=== PATIENT | female | born 1935 | race Asian ===

== ENCOUNTER 2020-05-04 09:41 | Inpatient (IN) | payer MEDICARE ==
[2020-05-04] VITALS (554 sets, daily range): BP systolic 71–134; BP diastolic 53–82; PULSE 55–81; TEMP 93–99.1; O2SAT 81–100
[~2020-05-04] VITALS: Ht 157.5 cm; Wt 44.4 kg
--- NOTE | 2020-05-04 10:15 | NUR ---
Patient arrives from [facility]. She is covid suspect, all PPE worn. She is intubated. Nathalie, PRESTON in room with me and sets patient up on the vent. Dr. Roth aware of arrival.
[2020-05-04 11:14] LABS: ARTERIAL BLD GAS O2 SATURATION 98.4 % (92-100); ARTERIAL BLD GAS TCO2 CT 12.9; ARTERIAL BLOOD GAS BASE EXCESS -10.4 (-2-2); ARTERIAL BLOOD GAS HCO3 12.3 meq/L (22-26); ARTERIAL BLOOD GAS pH 7.42 (7.35-7.45)
[2020-05-04 11:15] LABS: ARTERIAL BLOOD GAS PCO2 19.5 mmHg (35-45); ARTERIAL BLOOD GAS PO2 143.8 mmHg (80-100)
[2020-05-04 12:30] LABS: HEMOGLOBIN 10.1 g/dl (12.5-16.0); MEAN CELL VOLUME 95 fl (80.0-100.0); MEAN CORPUSCULAR HEMOGLOBIN 31 pg (27.0-31.0); MEAN CORPUSCULAR HGB CONC 33 g/dl (33.0-37.0); MEAN PLATELET VOLUME 11.4 fl (7.4-10.4); PLATELET COUNT 141 K/mm3 (130-400); RED BLOOD COUNT 3.23 M/mm3 (4.10-5.30); REDCELL DISTRIBUTION WIDTH-CV 17.4 % (11.5-14.5)
[2020-05-04 12:32] LABS: INR 1.3 (0.8-3.0); PROTHROMBIN TIME 14.1 SECONDS (9.7-12.8)
[2020-05-04 12:34] LABS: HEMATOCRIT 30.7 % (37.0-47.0)
[2020-05-04 12:44] LABS: BAND 20 % (0-10); LYMPHOCYTE 1 % (20.0-51.0); METAMYELOCYTE 1 % (0-0); OVALOCYTES 1+; PLATELET ESTIMATE NORMAL (NORMAL)
[2020-05-04 12:46] LABS: ALBUMIN 2.7 gm/dL (3.5-5.0); BILIRUBIN,TOTAL 1.2 mg/dL (0.0-1.0); CALCIUM 7.4 mg/dL (8.4-10.2); CREATININE, serum 0.83 (0.52-1.25); MAGNESIUM 1.3 mg/dL (1.6-2.3); PHOSPHOROUS 2.4 mg/dL (2.5-4.5); POTASSIUM 5.4 mmol/L (3.4-5.0); TOTAL PROTEIN 5.2 gm/dL (6.4-8.2)
[2020-05-04 12:47] LABS: NEUTROPHILS 76 % (42.0-75.2)
[2020-05-04 12:59] LABS: TROPONIN-I 0.107 ng/mL (0.000-0.035)
[2020-05-04 13:16] LABS: TSH w REFLEX 2.37 uIU/mL (0.465-4.680)
[2020-05-04] MEDS ORDERED: REMERON 15M15 MG/TA1 PO (13:52)
[2020-05-04] MEDS ORDERED: PROTONIX 40MG T40 MG PO (13:53)
[2020-05-04] MEDS ORDERED: NORCO 325 MG-101 TAB PO (13:53)
[2020-05-04] MEDS ORDERED: CARAFATE 1GM1 G PO (13:53)
[2020-05-04] MEDS ORDERED: TEMOVATE0.051 TOP (13:54)
[2020-05-04] MEDS ORDERED: COREG 6.256.25 MG/TA PO (13:54)
[2020-05-04] MEDS ORDERED: AMBIEN 5MG TABLE5 MG PO (13:55)
[2020-05-04] MEDS ORDERED: FOSAMAX 70MG TA70 MG PO (13:56)
[2020-05-04] MEDS ORDERED: LIPITOR 10MG10 MG PO (13:56)
[2020-05-04 16:22] LABS: ARTERIAL BLD GAS O2 SATURATION 97.8 % (92-100); ARTERIAL BLD GAS TCO2 CT 12.4; ARTERIAL BLOOD GAS HCO3 11.7 meq/L (22-26); ARTERIAL BLOOD GAS PCO2 21.4 mmHg (35-45); ARTERIAL BLOOD GAS PO2 109.6 mmHg (80-100); ARTERIAL BLOOD GAS pH 7.36 (7.35-7.45)
--- NOTE | 2020-05-04 18:20 | NUR ---
UPDATE GIVEN TO ARASH, DAUGHTER, OVER THE PHONE. QUESTIONS ANSWERED AND PLAN OF CARE DISCUSSED.
--- NOTE | 2020-05-04 19:00 | NUR ---
BEDSIDE REPORT GIVEN TO ESTEVAN YU
--- NOTE | 2020-05-04 20:00 | NUR ---
Patient resting on the vent at this time. She appears comfortable and no signs of pain. Patient opens eyes to name and noise in the room. Patient signifies that she would like to write. Paper and pen given, but patient begins writing in kinyarwanda, unable to determine what it is she needs. Repositioned for comfort. Assessment complete, see shift assessment for details. Vitals remain stable. Will continue to monitor. Call light within reach.
[2020-05-04 20:01] LABS: MUCOUS Present /lpf; PH 5 (5-8); SQUAMOUS EPITHELIAL None Seen /hpf; URINE APPEARANCE Hazy; URINE BACTERIA None Seen /hpf; URINE BILIRUBIN Negative (NEGATIVE); URINE BLOOD Negative (NEGATIVE); URINE COLOR Yellow; URINE GLUCOSE Negative (NEGATIVE); URINE KETONE Negative (NEGATIVE); URINE LEUKOCYTE ESTERASE Negative (NEGATIVE); URINE NITRATE Negative (NEGATIVE); URINE PROTEIN(semi-quant) 1+ (NEGATIVE); URINE UROBILINOGEN Negative (NEGATIVE)
[2020-05-05] VITALS (956 sets, daily range): BP systolic 83–130; BP diastolic 54–78; PULSE 63–94; TEMP 97–98.4; O2SAT 90–100
[2020-05-05 01:16] LABS: COLLECTION METHOD CATHETER
[2020-05-05 05:47] LABS: ARTERIAL BLD GAS O2 SATURATION 97.3 % (92-100); ARTERIAL BLD GAS TCO2 CT 14.5; ARTERIAL BLOOD GAS BASE EXCESS -10.2 (-2-2); ARTERIAL BLOOD GAS HCO3 13.8 meq/L (22-26); ARTERIAL BLOOD GAS PCO2 24.9 mmHg (35-45); ARTERIAL BLOOD GAS PO2 101.3 mmHg (80-100); ARTERIAL BLOOD GAS pH 7.36 (7.35-7.45)
--- NOTE | 2020-05-05 06:00 | NUR ---
Patient repositioned for comfort. Patient awakens very easily with any noise or tactile stimulation. Patient has been difficult to sedate has her pressures drop significantly with any increase in sedation. Patient has had no acute events throughout the night. No current needs at this time. Will continue to monitor. Call light within reach.
[2020-05-05 06:09] LABS: MEAN CELL VOLUME 97 fl (80.0-100.0); MEAN CORPUSCULAR HGB CONC 32 g/dl (33.0-37.0); MEAN PLATELET VOLUME 11.5 fl (7.4-10.4); PLATELET COUNT 142 K/mm3 (130-400); RED BLOOD COUNT 2.89 M/mm3 (4.10-5.30); REDCELL DISTRIBUTION WIDTH-CV 18.1 % (11.5-14.5)
--- NOTE | 2020-05-05 06:20 | NUR ---
PT NOT INTUBATED FOR OVER 24 HOURS THEREFORE NO WEAN TRIAL STARTED. PT ON DOCUMENTED SETTINGS RACHELL WELL WITH NO DISTRESS NOTED AT THIS TIME.
[2020-05-05 06:22] LABS: ALBUMIN 2.3 gm/dL (3.5-5.0); BILIRUBIN,TOTAL 0.9 mg/dL (0.0-1.0); CALCIUM 6.9 mg/dL (8.4-10.2); CREATININE, serum 0.82 (0.52-1.25); MAGNESIUM 1.9 mg/dL (1.6-2.3); POTASSIUM 4.7 mmol/L (3.4-5.0); TOTAL PROTEIN 4.6 gm/dL (6.4-8.2)
[2020-05-05 06:24] LABS: HEMATOCRIT 28.1 % (37.0-47.0); HEMOGLOBIN 9.1 g/dl (12.5-16.0); MEAN CORPUSCULAR HEMOGLOBIN 31 pg (27.0-31.0)
[2020-05-05 06:33] LABS: TROPONIN-I 0.118 ng/mL (0.000-0.035)
--- NOTE | 2020-05-05 07:00 | NUR ---
BEDSIDE REPORT RECEIVED FROM ESTEVAN YU. CARE ASSUMED.
--- NOTE | 2020-05-05 07:10 | NUR ---
Bedside report given to ESTEVAN Simmons
[2020-05-05 07:55] LABS: ANISOCYTOSIS 1+; BAND 20 % (0-10); BURR CELLS 1+; LYMPHOCYTE 7 % (20.0-51.0); NEUTROPHILS 70 % (42.0-75.2); PLATELET ESTIMATE NORMAL (NORMAL)
--- NOTE | 2020-05-05 08:00 | NUR ---
UPDATE GIVEN TO DAUGHTER, ARASH, VIA PHONE. ALL QUESTIONS ANSWERED.
--- NOTE | 2020-05-05 10:03 | NUR ---
hop worker contacted patient's daughter, Simón Goodson #[phone] as patient is currently on a ventilator. Simón stated that patient lives alone and has been independent with her activties of daily living. Simón states that she has been providing transportation. Patient's primary care provider is Dr Cooper from [facility] and that he has an office in [place], [place]. Patient has a Medicare advantage plan and has prescription coverage. Worker confirmed with Dr Cooper that there are no advance directives on file in his office. Dr Cooper advised that daughter told him patient would not want to be resuscitated. Simón stated that patient does have a Living Will and will try to locate it at patient's home today and scallop cutter. Simón stated that she is the only child. Case Management will continue to follow.
--- NOTE | 2020-05-05 12:20 | NUR ---
beadworker contacted patient's absorption plant operator helper's office at [phone] and requested copies of advance directives to be faxed to the hospital. Daughter, Simón states she also has a copy of patient's Will.
--- NOTE | 2020-05-05 19:00 | NUR ---
BEDSIDE REPORT GIVEN TO ESTEVAN OLSON
[2020-05-06] VITALS (786 sets, daily range): BP systolic 65–144; BP diastolic 40–85; PULSE 41–138; TEMP 97–101.8; O2SAT 80–100
--- NOTE | 2020-05-06 04:21 | NUR ---
TF INCREASED TO 20 ML/HR. PT TOERATING IT WELL. RESIDUAL AT 100 CC. AUDIBLE BOWEL TONES.
[2020-05-06 05:03] LABS: MEAN CELL VOLUME 98 fl (80.0-100.0); MEAN CORPUSCULAR HGB CONC 32 g/dl (33.0-37.0); MEAN PLATELET VOLUME 11.5 fl (7.4-10.4); PLATELET COUNT 109 K/mm3 (130-400); RED BLOOD COUNT 2.82 M/mm3 (4.10-5.30); REDCELL DISTRIBUTION WIDTH-CV 18.7 % (11.5-14.5)
[2020-05-06 05:16] LABS: HEMATOCRIT 27.5 % (37.0-47.0); HEMOGLOBIN 8.8 g/dl (12.5-16.0); MEAN CORPUSCULAR HEMOGLOBIN 31 pg (27.0-31.0)
[2020-05-06 05:22] LABS: ALBUMIN 2.1 gm/dL (3.5-5.0); BILIRUBIN,TOTAL 0.8 mg/dL (0.0-1.0); CALCIUM 6.7 mg/dL (8.4-10.2); CREATININE, serum 0.8 (0.52-1.25); POTASSIUM 4.2 mmol/L (3.4-5.0); TOTAL PROTEIN 4.3 gm/dL (6.4-8.2)
[2020-05-06 05:23] LABS: ARTERIAL BLD GAS O2 SATURATION 96.5 % (92-100); ARTERIAL BLD GAS TCO2 CT 12.6; ARTERIAL BLOOD GAS BASE EXCESS -11.6 (-2-2); ARTERIAL BLOOD GAS HCO3 11.9 meq/L (22-26); ARTERIAL BLOOD GAS PO2 96.4 mmHg (80-100); ARTERIAL BLOOD GAS pH 7.37 (7.35-7.45)
[2020-05-06 05:35] LABS: NEUTROPHILS 57 % (42.0-75.2)
[2020-05-06 05:36] LABS: BAND 7 % (0-10); LYMPHOCYTE 34 % (20.0-51.0)
[2020-05-06 05:37] LABS: ANISOCYTOSIS 1+; BURR CELLS 1+; PLATELET ESTIMATE DECREASED (NORMAL)
[2020-05-06 05:38] LABS: OVALOCYTES 1+
--- NOTE | 2020-05-06 07:20 | NUR ---
REPORT GIVEN TO ESTEVAN VALDEZ.
--- NOTE | 2020-05-06 08:35 | NUR ---
[facility] CALLED AND REQUESTED RECORDS OF PTS EGD/COLONOSCOPY. STATED IF THEY CAN FIND THEY WILL FAX OVER.
--- NOTE | 2020-05-06 08:37 | NUR ---
PT APPEARS TO HAVE GONE IN TO AFIB. BP STABLE. EKG ORDERED AND RT NOTIFIED.
--- NOTE | 2020-05-06 08:52 | NUR ---
EKG SHOWS AFIB. NOTIFIED.
--- NOTE | 2020-05-06 10:00 | NUR ---
CALLED AND NOTIFIED THAT PT IS NOW IN AFIB WITH [id number]. ORDER RECEIVED TO GIVE AMIO BOLUS PLUS START DRIP AT 1MG/MIN FOR [address] BULL NOTIFIED.
--- NOTE | 2020-05-06 10:35 | NUR ---
FENT AND PROPOFOL STOPPED. PT EXTUBATED BY RT PER 'S ORDER. WILL DO ABG AT 1300. PT AND DAUGHTER UPDATED ON PLAN.
--- NOTE | 2020-05-06 11:00 | NUR ---
PT HAS A FEVER OF 101.3 RECTALLY. AND NOTIFIED. ORDER RECEIVED FOR BC, URINE CULTURE, AND TYLENOL.
--- NOTE | 2020-05-06 12:30 | NUR ---
PT STILL HAS A FEVER OF 101.8. ICE PACKS APPLIED AND NOTIFIED. ORDER FOR ASPRIN RECEIVED. PT BECOMING INCREASINGLY LETHARGIC. NOTFIED AND EVALUATED PT. DECIDED TO REINTUBATE. PT INTUBATED AT 1250. SEE RSI SHEET. PT BECAME BRADYCARDIC AMIO STOPPED PER . SEE DRIP TITRATION FLOW SHEET. WILL CONTINUE TO MONITOR.
--- NOTE | 2020-05-06 12:50 | NUR ---
PT REINTUBATED DUE TO DISTRESS/ AT BEDSIDE. PT INTUBATED BY DR BULL WITHOUT COMPLICATIONS. GOOD CONSISTANT COLOR CHANGE, OETT SEEN PASSING CORDS ON GLIDASCOPE AND BBSH. CXR AND ABG PENDING. ALARMS SET AND FUNCTIONING. SETTING PER DR. BULL. PLEASE SEE ADDITIONAL CHARTING.
--- NOTE | 2020-05-06 12:50 | NUR ---
PT REINTUBATED. PROPOFOL RESTARTED PER
--- NOTE | 2020-05-06 13:00 | NUR ---
LEVO INCREASED TO 0.25 PER AT BEDSIDE
--- NOTE | 2020-05-06 13:29 | NUR ---
LEVO INCREASED TO 0.4 PER
--- NOTE | 2020-05-06 15:02 | NUR ---
PT APPEARED TO BE BACK IN A REGULAR RYTHYM. EKG DONE AND SHOWING SUPRAVENTRICULAR CHASTITY WITH ACUTE VT. CALLED AT 1446 STATED HE WOULD CALL BACK. CALLED AND NOTIFIED AND ORDERED A TROP AND TO RECALL TO NOTIFY. TROPONIN DRAWN. CALLED AGAIN AT 1500 AND NOTIFIED OF EKG, BP, AND HEART RATE. NO NEW ORDERS RECEIVED.
--- NOTE | 2020-05-06 15:24 | NUR ---
LEVOPHED RESTARTED AT 0.2 PER
[2020-05-06 16:02] LABS: ARTERIAL BLD GAS O2 SATURATION 98.4 % (92-100); ARTERIAL BLD GAS TCO2 CT 13.3; ARTERIAL BLOOD GAS BASE EXCESS -11.4 (-2-2); ARTERIAL BLOOD GAS HCO3 12.6 meq/L (22-26); ARTERIAL BLOOD GAS PCO2 23.1 mmHg (35-45); ARTERIAL BLOOD GAS pH 7.36 (7.35-7.45)
--- NOTE | 2020-05-06 16:26 | NUR ---
PT AROUSES TO VOICE. PT CONFUSED BUT ABLE TO FOLLOW SOME COMMANDS. PT MOVING ALL EXTREMETIES.
--- NOTE | 2020-05-06 17:29 | NUR ---
[facility] CALLED AT 1555 REGARDING BRINGING UP TUBE FEEDING. INSTRUCTED TO RESTART TUBE FEEDING THIS EVENING. CURRENTLY AWAITING DELIVERY.
--- NOTE | 2020-05-06 17:51 | NUR ---
TUBE FEED STARTED AT 10ML/HR. WILL RUN FOR 12HRS THEN INCREASE BY 10ML/HR. WILL ENDORSE TO FOLLOWING RN.
--- NOTE | 2020-05-06 18:19 | NUR ---
CALLED THIS RN TO GET UPDATE ON PT. INFORMED HIM THAT PT IS STILL IN A JUNCTIONAL RYTHYM WITH HR 46-53. ALSO DISCUSSED BP, TEMP, PRESSERS, FLUIDS, AND REINTUBATION. STATES NO NEW ORDERS AT THIS TIME. IF HR HITS THE 30'S TO CALL BACK AND MAY NEED TO START DOPAMINE. WILL PLACED ORDER AND ENDORSE TO FOLLOWING RN.
--- NOTE | 2020-05-06 19:08 | NUR ---
received report from ESTEVAN Smith.
[2020-05-07] VITALS (846 sets, daily range): BP systolic 83–134; BP diastolic 48–77; PULSE 44–66; TEMP 97.2–98.5; O2SAT 77–100
[2020-05-07 04:01] LABS: ARTERIAL BLD GAS O2 SATURATION 98.2 % (92-100); ARTERIAL BLD GAS TCO2 CT 13.8; ARTERIAL BLOOD GAS HCO3 13.1 meq/L (22-26); ARTERIAL BLOOD GAS pH 7.41 (7.35-7.45)
--- NOTE | 2020-05-07 04:24 | NUR ---
TF INCREASED TO 20 ML/HR ORDERED. PT TOLERATING IT WELL. RESIDUAL AT 75 CC.
[2020-05-07 04:48] LABS: BASO % 0.1 % (0.0-2.0); GRAN # 18.1 (1.4-6.5); GRAN % 82.7 % (42.2-75.2); LYMPH # 2.7 (1.2-3.4); LYMPH % 12.3 % (20.0-51.0); MEAN CELL VOLUME 97 fl (80.0-100.0); MEAN CORPUSCULAR HGB CONC 33 g/dl (33.0-37.0); MEAN PLATELET VOLUME 12.1 fl (7.4-10.4); MONO # 0.9 (0.1-0.6); MONO % 3.9 % (1.7-9.3); PLATELET COUNT 77 K/mm3 (130-400); RED BLOOD COUNT 2.64 M/mm3 (4.10-5.30); REDCELL DISTRIBUTION WIDTH-CV 18.6 % (11.5-14.5)
[2020-05-07 04:52] LABS: HEMATOCRIT 25.5 % (37.0-47.0); HEMOGLOBIN 8.3 g/dl (12.5-16.0); MEAN CORPUSCULAR HEMOGLOBIN 31 pg (27.0-31.0)
[2020-05-07 04:58] LABS: CALCIUM 6.7 mg/dL (8.4-10.2); CREATININE, serum 0.82 (0.52-1.25); MAGNESIUM 1.8 mg/dL (1.6-2.3); POTASSIUM 4.5 mmol/L (3.4-5.0); TOTAL PROTEIN 4.2 gm/dL (6.4-8.2)
--- NOTE | 2020-05-07 05:00 | NUR ---
NO SEDATION VACATION PERFORMED PT AWAKENS TO VOICE AND FOLLOWS COMMANDS. PT ON VERY MINIMAL SEDATION - PROPOFOL AT 10 MCG/KG/MIN.
--- NOTE | 2020-05-07 05:11 | NUR ---
[place] [id number] AND WBC AT 21.9. PT ALREADY ON ANTIBIOTICS AND PT DOES HAVE GENERALIZED 2+ EDEMA, LEFT ARM WEEPING. PT HAS LR GOING AT 75 ML/HR. JOAN BANDA CALLED AND UPDATED, WILL REVIEW PT'S LABS AND WILL ORDER STUFF IF NEEDED.
--- NOTE | 2020-05-07 07:03 | NUR ---
REPORT GIVEN TO ESTEVAN ARIAS.
--- NOTE | 2020-05-07 08:30 | NUR ---
PT IS WORKING WITH PT AT THIS TIME. NO DISTRESS NOTED.
--- NOTE | 2020-05-07 17:00 | NUR ---
At current sedation pt able to open eyes to voice and follow all commands
--- NOTE | 2020-05-07 20:00 | NUR ---
PATIENT IS AWAKENED TO VOICE, WANTS TO WRITE MESSAGE, STAFF UNABLE TO READ WHAT IS WRITTEN. PATIENT GESTURES OF WANTING TO GET ET TUBE OUT.. WHEN EXPLAINED ET TUBE HAS TO STAY IN PATIENT LOOKS AWAY, PATIENT IS DROWSY WILL FALL ASLEEP DURING CONVERSATION.
[2020-05-07 21:56] LABS: ARTERIAL BLOOD GAS PCO2 21.4 mmHg (35-45); ARTERIAL BLOOD GAS PO2 125.7 mmHg (80-100)
[2020-05-08] VITALS (664 sets, daily range): BP systolic 92–116; BP diastolic 45–68; PULSE 58–77; TEMP 97.6–98.7; O2SAT 83–100
[2020-05-08 05:27] LABS: ALBUMIN 2.1 gm/dL (3.5-5.0); BILIRUBIN,TOTAL 0.5 mg/dL (0.0-1.0); CALCIUM 7.1 mg/dL (8.4-10.2); CREATININE, serum 0.79 (0.52-1.25); PHOSPHOROUS 2.4 mg/dL (2.5-4.5); POTASSIUM 4.1 mmol/L (3.4-5.0); TOTAL PROTEIN 4.3 gm/dL (6.4-8.2)
[2020-05-08 05:34] LABS: PRE ALBUMIN 10.5 mg/dL (17.6-36.0)
[2020-05-08 05:45] LABS: ARTERIAL BLD GAS O2 SATURATION 96.7 % (92-100); ARTERIAL BLD GAS TCO2 CT 17.2; ARTERIAL BLOOD GAS BASE EXCESS -6.2 (-2-2); ARTERIAL BLOOD GAS HCO3 16.5 meq/L (22-26); ARTERIAL BLOOD GAS PCO2 23.3 mmHg (35-45); ARTERIAL BLOOD GAS PO2 90.5 mmHg (80-100); ARTERIAL BLOOD GAS pH 7.47 (7.35-7.45)
--- NOTE | 2020-05-08 07:50 | NUR ---
Shift assessment complete at this time. Plan of care reviewed at bedside with patient. Additional time taken to address any other needs or concerns. Vitals stable at this time. CPOT score 0 at this time while intubated. Sedation stopped at 0730 for weaning trial. Bed in low position, call light within reach, will continue to monitor.
--- NOTE | 2020-05-08 08:45 | NUR ---
PICC intact right upper arm with sterile dressing change done with insertion site cleansed with chloraprep x 1, chlorhexidine impregnated disk applied, skin prep, stat lock, and tegaderm applied. no signs or symptoms of IV complications noted. no concerns voiced. slight hand swelling. restraints present. emanuel not re-applied.
[2020-05-08 09:48] LABS: ARTERIAL BLD GAS O2 SATURATION 94.6 % (92-100); ARTERIAL BLD GAS TCO2 CT 17.8; ARTERIAL BLOOD GAS BASE EXCESS -5.8 (-2-2); ARTERIAL BLOOD GAS PCO2 25.5 mmHg (35-45); ARTERIAL BLOOD GAS pH 7.44 (7.35-7.45)
--- NOTE | 2020-05-08 10:59 | NUR ---
DYLON contacted the patient's commercial litigation attorney's office and requested a copy of the patient's Living Will/advanced directives. The tool polishing machine operator reports that she will see what she all has for the patient and email it to DYLON. DYLON provided her with email.
--- NOTE | 2020-05-08 12:00 | NUR ---
Shift reassessment complete at this time. No changes from previous assessment noted. Vitals stable at this time. Pt denies pain or any discomforts. CPOT score 0. Bed in low position, call light within reach, will continue to monitor.
--- NOTE | 2020-05-08 13:04 | NUR ---
Tamie, with the patient's energy attorney's office, reports that they only have a Last Will and Testament for the patient. No Living Will or DPOA-HC.
--- NOTE | 2020-05-08 13:44 | NUR ---
DYLON attended clinical rounds. The patient remains on the ventilator. DYLON staffed with the patient's RN, Justo. The lagging machine operator would like to have the patient's daughter, Simón, come up to the hospital for a family meeting. Justo reports that he plans on getting in contact with Simón to schedule a time. DYLON then contacted Simón to follow up. Simón reports that she looks forward to hearing from Justo and could be up to the hospital this afternoon, if it would work. Simón had no other questions for DYLON at this time. DYLON notified Justo. DYLON to continue to follow.
--- NOTE | 2020-05-08 16:00 | NUR ---
Shift reassessment complete at this time. No changes from previous assessment noted. Vitals stable at this time. CPOT score 0. Bed in low position, call light within reach, will continue to monitor.
--- NOTE | 2020-05-08 17:00 | NUR ---
No sedation vacation performed at this time. Pt easily awakens to voice and follows direction while being able to rest comfortably on vent. Plan to keep Pt sedated at this level till AM when we will perform another weaning trial per direction of Dr. Roth.
--- NOTE | 2020-05-08 19:55 | NUR ---
PATIENT AWAKENS ALERT AND CAN COMMUNICATE SOME WITH HANDS, LIKE MOUTH DRY, WHEN LEFT ALONE FOR A MOMENT PATIENT RELAXES AND SLEEPS
[2020-05-09] VITALS (566 sets, daily range): BP systolic 100–148; BP diastolic 52–86; PULSE 58–79; TEMP 97–98.4; O2SAT 47–100
[2020-05-09 05:31] LABS: ARTERIAL BLD GAS O2 SATURATION 95.8 % (92-100); ARTERIAL BLOOD GAS BASE EXCESS -6.4 (-2-2); ARTERIAL BLOOD GAS HCO3 17.2 meq/L (22-26); ARTERIAL BLOOD GAS PO2 89.1 mmHg (80-100); ARTERIAL BLOOD GAS pH 7.42 (7.35-7.45)
[2020-05-09 07:03] LABS: MEAN CELL VOLUME 100 fl (80.0-100.0); MEAN CORPUSCULAR HGB CONC 32 g/dl (33.0-37.0); MEAN PLATELET VOLUME 12.1 fl (7.4-10.4); PLATELET COUNT 87 K/mm3 (130-400); RED BLOOD COUNT 2.23 M/mm3 (4.10-5.30); REDCELL DISTRIBUTION WIDTH-CV 19.2 % (11.5-14.5)
[2020-05-09 07:12] LABS: HEMATOCRIT 22.2 % (37.0-47.0); HEMOGLOBIN 7.1 g/dl (12.5-16.0); MEAN CORPUSCULAR HEMOGLOBIN 32 pg (27.0-31.0)
[2020-05-09 07:17] LABS: CALCIUM 7.3 mg/dL (8.4-10.2); CREATININE, serum 0.74 (0.52-1.25); POTASSIUM 4.2 mmol/L (3.4-5.0)
[2020-05-09 08:12] LABS: BAND 3 % (0-10); LYMPHOCYTE 19 % (20.0-51.0); METAMYELOCYTE 2 % (0-0); NEUTROPHILS 75 % (42.0-75.2); NUCLEATED RED BLOOD CELL 1 (0-6); OVALOCYTES 1+; PLATELET ESTIMATE DECREASED (NORMAL)
[2020-05-09 08:24] LABS: MEAN CELL VOLUME 97 fl (80.0-100.0); MEAN CORPUSCULAR HGB CONC 32 g/dl (33.0-37.0); MEAN PLATELET VOLUME 12.4 fl (7.4-10.4); PLATELET COUNT 75 K/mm3 (130-400); RED BLOOD COUNT 2.28 M/mm3 (4.10-5.30); REDCELL DISTRIBUTION WIDTH-CV 18.9 % (11.5-14.5)
[2020-05-09 08:25] LABS: HEMATOCRIT 22.2 % (37.0-47.0); HEMOGLOBIN 7.2 g/dl (12.5-16.0); MEAN CORPUSCULAR HEMOGLOBIN 32 pg (27.0-31.0)
--- NOTE | 2020-05-09 09:20 | NUR ---
PT EXTUBATED PER DR BULL'S ORDERS. PT SUCTIONED ORALLY AND VIA ETT PRIOR TO EXTUBATION. PT PLACED ON 4L OXYMASK AND SUCTIONED ORALLY POST EXTUBATION. PT TOLERATED WELL. BLBS ARE CLEAR AND EQUAL. NO STRIDOR NOTED. PT HAS NO DISTRESS AND IS BREATHING COMFORTABLY. VSS. HR 73, RR 22, SPO2 100%
--- NOTE | 2020-05-09 09:20 | NUR ---
PT extubated by RT Nathalie with assistance of this RN. PT tolerated well and maintaing O2 sats at 99% on 4L via mask. PT has a wet occasional cough, but appears to be comfortable.
--- NOTE | 2020-05-09 11:22 | NUR ---
SW attended clinical rounds. The patient's daughter, Simón, at bedside. The patient was extubated this morning and is currently on supplemental oxygen, 4 liters. The patient does not want to be reintubated, if extubation fails. The patient is to tentatively have a thorancentesis tomorrow. DYLON then followed up with the patient and daughter, Simón, to introduce oneself and reviewed options after discharge. The patient is hard of hearing. DYLON discussed post-acute rehab. Simón reports that she would want to take the patient home and take care of her after discharge. She states that with COVID going on, she does not feel safe with the patient going to any facility. She states that she is a medical assistanct for a private duty home health agency and would be able to take care of the patient. She had no other questions for SW at this time. DYLON to continue to follow.
[2020-05-09 11:48] LABS: PARTIAL THROMBOPLASTIN TIME 29.8 SECONDS (26.0-37.0)
--- NOTE | 2020-05-09 14:24 | NUR ---
Notified DR. Roth and Dr. Ortiz of PT arterial ultrasound results. Dr. Ortiz advised to continue with Dr. Ruiz's plan for heparin drip at this time.
[2020-05-09 16:25] LABS: HEMATOCRIT 27.1 % (37.0-47.0); HEMOGLOBIN 8.6 g/dl (12.5-16.0)
--- NOTE | 2020-05-09 17:33 | NUR ---
PT HR noted to be possible A-fib. RT notified for EKG. Dr. Ortiz called and advised. No new orders at this time.
--- NOTE | 2020-05-09 19:35 | NUR ---
Bedside report received from ESTEVAN Medina
--- NOTE | 2020-05-09 20:00 | NUR ---
Patient awake resting in bed. She denies any pain or SOA. Does complain of coughing up a lot of muscus. It is white and sticky. explained that this is normal post extubation and for her diagnosis. Assessment complete, see shift assessment for details. Patient has no current needs at this time. WIll continue to monitor. Call light within reach.
--- NOTE | 2020-05-09 22:00 | NUR ---
Patient found to be in SR at this time.
[2020-05-10] VITALS (508 sets, daily range): BP systolic 132–173; BP diastolic 69–93; PULSE 62–76; TEMP 98–98.9; O2SAT 43–100
--- NOTE | 2020-05-10 04:00 | NUR ---
Patient asleep at this time. Awakens to name. assessment complete with no changes from previous exams. Patient has no current needs. Will continue to monitor. Call light within reach. Heparin drip held at this time per Dr Roth for thoracentesis later this morning.
[2020-05-10 04:35] LABS: HEMATOCRIT 25.1 % (37.0-47.0); HEMOGLOBIN 7.8 g/dl (12.5-16.0); MEAN CELL VOLUME 100 fl (80.0-100.0); MEAN CORPUSCULAR HEMOGLOBIN 31 pg (27.0-31.0); MEAN CORPUSCULAR HGB CONC 31 g/dl (33.0-37.0); MEAN PLATELET VOLUME 11.8 fl (7.4-10.4); PLATELET COUNT 94 K/mm3 (130-400)
[2020-05-10 04:41] LABS: CALCIUM 7.5 mg/dL (8.4-10.2); CREATININE, serum 0.66 (0.52-1.25); POTASSIUM 4.3 mmol/L (3.4-5.0)
[2020-05-10 05:14] LABS: ANISOCYTOSIS 2+; BAND 4 % (0-10); LYMPHOCYTE 16 % (20.0-51.0); NEUTROPHILS 76 % (42.0-75.2); PLATELET ESTIMATE DECREASED (NORMAL)
--- NOTE | 2020-05-10 07:20 | NUR ---
Report received from Edilia BARRETO and care resumed.
--- NOTE | 2020-05-10 07:59 | NUR ---
Dr Roth in to see pt at this time.
--- NOTE | 2020-05-10 09:26 | NUR ---
Dr Ruiz in to see pt at this time.
--- NOTE | 2020-05-10 09:58 | NUR ---
Daughter Simón called as Dr. Ruiz spoke with pt in rounding. Included Simón in the discussion and answered all of her questions concerning pt care.
--- NOTE | 2020-05-10 10:37 | NUR ---
The patient is to transfer up to the medical floor today. SW contacted and updated the patient's daughter, Simón. Simón reports that she did download Zoom to be able to video chat with the patient. SW notified the patient's RN. SW to continue to follow.
--- NOTE | 2020-05-10 13:57 | NUR ---
Pt to radiology for swallow study at this time.
--- NOTE | 2020-05-10 17:33 | NUR ---
Report called to [facility] on medical floor. Pt taken by wheelchair on tele with chart and belongings to room 352. Bedside update given to ANA.
--- NOTE | 2020-05-10 18:24 | NUR ---
RECEIVED REPORT FROM SALOMON IN ICU. PATIENT WAS TO FLOOR AT 1730, TRANSPORTED BY WHEELCHAIR BY ICU NURSE. PATIENT WAS IN BED UPON MEETING HER. SHE IS HARD OF HEARING AND HAS HEARING AIDS IN PLACE. WAS ABLE TO UNDERSTAND ME WITHOUT ISSUE. HER VOICE IS HOARSE AND SHE NOTICES AND QUESTIONS IT. DID EXPLAIN THAT INTUBATION CAN CAUSE THIS. SHE UNDERSTOOD WHEN I TOLD HER THERE WAS A TUBE IN HER THROAT TO BREATHE. SHE WAS PLEASED TO SHOW ME HER ARMS AND LEGS SHE SAID SHE WAS SO SWOLLEN. BLE EDEMA IS 2+. DID OBSERVE BLACKENED TIPS TO 4TH AND 5TH TOES ON THE LEFT FOOT. TEMPERATURE VARIATION IS NOT NOTICED. DID FEEL 2+ PULSES TO BILATERAL FEET AND RADIAL SITES. NO OTHER SKIN ISSUES ARE NOTED. LUNGS DO SOUND COARSE AND BRONCHIAL WHEEZING IS HEARD. HEART IS REGULAR. IS ALERT AND ORIENTED. CALL LIGHT IS WITHIN REACH.
--- NOTE | 2020-05-10 19:10 | NUR ---
Received report from [facility]. Seen patient awake, lying in bed. She is hard of hearing and with bilateral hearing aids. With hines catheter draining yellow urine. With PICC on her right upper arm infusing heparin at 8ml/hr. She has hoarse voice. Denies pain. Edema noted on BLE. Call light within reach.
[2020-05-11] VITALS (7 sets, daily range): BP systolic 116–138; BP diastolic 60–75; PULSE 61–91; TEMP 98–99.2
--- NOTE | 2020-05-11 06:07 | NUR ---
Patient had an uneventful night. Repositioned patient on sitting position in bed. Caps in PICC changed. She still have hoarse voice. She was able to take her pills with apple sauce. Will endorse to day shift nurse.
[2020-05-11 07:35] LABS: MEAN CELL VOLUME 100 fl (80.0-100.0); MEAN CORPUSCULAR HGB CONC 31 g/dl (33.0-37.0); MEAN PLATELET VOLUME 12.1 fl (7.4-10.4); PLATELET COUNT 106 K/mm3 (130-400); RED BLOOD COUNT 2.63 M/mm3 (4.10-5.30); REDCELL DISTRIBUTION WIDTH-CV 19.4 % (11.5-14.5)
[2020-05-11 07:38] LABS: HEMATOCRIT 26.4 % (37.0-47.0); HEMOGLOBIN 8.2 g/dl (12.5-16.0); MEAN CORPUSCULAR HEMOGLOBIN 31 pg (27.0-31.0)
--- NOTE | 2020-05-11 08:49 | NUR ---
HepXa in withing goal range at 0.45, NO changes to dosing/rate at this time, cont TRA 8ml/hr, next recheck is 05/12/20 @ 0600
--- NOTE | 2020-05-11 10:08 | NUR ---
Assessment completed, alert/oriented, vital signs stable, denies pain, still having a difficult time with speech/ she is able to talk softy and i have reassured her that this will continue to improve with time, ST is following as well, tele called and notified me that she appears to have went back into A.fib/ rate is controlled and I havve notified hospitalist and ordred EKG, no resp.difficulty while at rest, lung bases still have some coarse crackkles and patient is having a productive cough, has been by and discussed plan of care reguarding her bilateral pleural effusions/ repeat CXR 05/12 and possible thoracentesis if indicated, 2-3+ edema to BLE/ IV diurectice and hines cath is patent with clear yellow urine, she is sitting up in bed denies other needs at this time, I have talke to daughter on the phone and discussed POC
--- NOTE | 2020-05-11 10:51 | NUR ---
Dr. Luna and team rounding-daughter Heather called and Dr. Luna reviewed pt status. Discussed discharge plan. Pt is now on RA. Pt continues on IV antibiotics. ST-pt having aspiration issues. Bryan remains. Safe diet plan to prevent PNA. Heparin gtts continues. Answered all questions of daughter/pt- they voiced understanding.
--- NOTE | 2020-05-11 15:04 | NUR ---
Disability Manager contacted patient's daughter, Simnó to review discharge plan. Simón advised patient lives alone but that she will be staying with patient once discharged. SW spoke with Simón about Home Health Services. Simón would like to have this set up but needs to speak with patient about options before making a final decision. DYLON will continue to follow.
--- NOTE | 2020-05-11 19:20 | NUR ---
Received report from [facility]. Seen patient awake, lying in bed. She denies pain. She asked if she can have a visitor and she prefers her daughter to visit her. Evans called her daughter to inform her about the visiting hours. On hines catheter. With PICC on right upper arm infusing heparin at 8ml/hr. Call light within reach.
[2020-05-12 03:21] VITALS: BP 112/57; PULSE 91; TEMP 98.3
--- NOTE | 2020-05-12 06:34 | NUR ---
Patient had uneventful night. Afebrile. Denies pain. Will endorse to day shift nurse.
[2020-05-12 07:27] VITALS: BP 121/64; PULSE 80; TEMP 98.3
[2020-05-12 07:59] LABS: CALCIUM 8.1 mg/dL (8.4-10.2); CREATININE, serum 0.71 (0.52-1.25); MAGNESIUM 1.5 mg/dL (1.6-2.3); POTASSIUM 3.3 mmol/L (3.4-5.0)
[2020-05-12 08:03] LABS: BASO % 0.1 % (0.0-2.0); GRAN # 7.4 (1.4-6.5); GRAN % 71.5 % (42.2-75.2); LYMPH # 2.1 (1.2-3.4); LYMPH % 20.6 % (20.0-51.0); MEAN CELL VOLUME 99 fl (80.0-100.0); MEAN CORPUSCULAR HGB CONC 33 g/dl (33.0-37.0); MEAN PLATELET VOLUME 11.8 fl (7.4-10.4); MONO # 0.7 (0.1-0.6); MONO % 6.7 % (1.7-9.3); PLATELET COUNT 104 K/mm3 (130-400); RED BLOOD COUNT 2.57 M/mm3 (4.10-5.30); REDCELL DISTRIBUTION WIDTH-CV 19.2 % (11.5-14.5)
[2020-05-12 08:08] LABS: HEMATOCRIT 25.5 % (37.0-47.0); HEMOGLOBIN 8.3 g/dl (12.5-16.0); MEAN CORPUSCULAR HEMOGLOBIN 32 pg (27.0-31.0)
--- NOTE | 2020-05-12 09:17 | NUR ---
Assessment completed, alert/oriented, vital signs stable, denies pain, heart RRR/ SR this morning, good air exchange in lungs/ bases diminished with some coarse crackles noted to RLL, patient still having difficulty with speech and swallowing s/p intubation, ST is following closely for these issues, spoke with over phone / he said pleural effussions are small and he will stop Hep gtt tommorow morning and re-evaluate for possible thoracentesis, patient still has 2-3+ edema to BLE/ continue IV Lasix and she is having good urine output via hines cath, repositioned for comfort, she denies other needs at this time
[2020-05-12 11:55] VITALS: BP 112/62; PULSE 87; TEMP 98.2
--- NOTE | 2020-05-12 14:32 | NUR ---
REPORT FROM MINDA BARRETO.
--- NOTE | 2020-05-12 14:54 | NUR ---
Merry Go Round Operator met with patient and patient's daughter, Simón to discuss discharge planning. Simón and patient are agreeable to have a referral sent to [facility]. Simón states if [facility] cannot take patient, the plan would be to return home with [facility] (fax#[phone]). DYLON contacted Tamie, [facility] Director to give referral. DYLON also faxed referral to [facility] and spoke with technical publications manager RN about patient. DYLON collaborated with Tamie who advised she will have to evaluate on Friday if they have a bed available. DYLON will continue to follow.
--- NOTE | 2020-05-12 15:33 | NUR ---
Project Consultant met with patient and patient's daughter, Simón. Patient would like to complete DPOA-HC and designate her daughter, Simón and grandson, Harley. SW assisted patient in completing the form then DYLON and DYLON Cooper provided witness signature. SW placed copy in chart then provided original and copies to patient. SW will continue to follow.
[2020-05-12 16:19] VITALS: BP 105/58; PULSE 91; TEMP 98.8
[2020-05-12 19:11] VITALS: BP 114/57; PULSE 84; TEMP 97.9
--- NOTE | 2020-05-12 20:30 | NUR ---
Initial shift assessment done- denies pain, Tele on-afib rate of 72, has lower extremity edema, PICC to MICAH, Bryan to DD with cloudy yellow urine. o2 sats 93% on RA
--- NOTE | 2020-05-12 22:30 | NUR ---
Did let Joselin WILKINS know that pt did go back into afib around shift change according to telephone clerk--order for a EKG at this time,, called respiratory and they will be up soon .
[2020-05-12 23:27] VITALS: BP 110/60; PULSE 85; TEMP 98.8
[2020-05-13] VITALS (9 sets, daily range): BP systolic 110–121; BP diastolic 55–71; PULSE 77–88; TEMP 97.3–98.2
--- NOTE | 2020-05-13 05:46 | NUR ---
Did sleep for a few hours around MN-- has been awake sine around 0200,,states was nauseated- coughing up thick mucous white/clear after her respiratory treatment- order obtained for Zofran- given,, did rest for awhile after zofran given--now awake and spitting up more thick secretions-talked with respiratory,,this is what the patient has been doing since the extubation-- pts vitals are stable- no distress noted -pt calm, no temp, o2 sats good on RA-repositioned up in bed, HOB up--Lung sounds clear this morning- slightly decreased in bases--pt would like me to call her daughter and tell her about the spitting up, will give her a call this morning
[2020-05-13 06:58] LABS: BASO % 0.1 % (0.0-2.0); GRAN # 7.4 (1.4-6.5); GRAN % 70.8 % (42.2-75.2); LYMPH # 2.2 (1.2-3.4); LYMPH % 21.5 % (20.0-51.0); MEAN CELL VOLUME 99 fl (80.0-100.0); MEAN CORPUSCULAR HGB CONC 32 g/dl (33.0-37.0); MEAN PLATELET VOLUME 11.6 fl (7.4-10.4); MONO # 0.7 (0.1-0.6); MONO % 6.7 % (1.7-9.3); PLATELET COUNT 94 K/mm3 (130-400); RED BLOOD COUNT 2.59 M/mm3 (4.10-5.30); REDCELL DISTRIBUTION WIDTH-CV 19.1 % (11.5-14.5)
[2020-05-13 07:05] LABS: ALBUMIN 2.5 gm/dL (3.5-5.0); BILIRUBIN,TOTAL 0.7 mg/dL (0.0-1.0); CALCIUM 8.1 mg/dL (8.4-10.2); CREATININE, serum 0.69 (0.52-1.25); MAGNESIUM 1.5 mg/dL (1.6-2.3); PHOSPHOROUS 3.7 mg/dL (2.5-4.5); TOTAL PROTEIN 4.8 gm/dL (6.4-8.2)
[2020-05-13 07:18] LABS: POTASSIUM 2.9 mmol/L (3.4-5.0)
--- NOTE | 2020-05-13 07:30 | NUR ---
RECEIVED REPORT, PATIENT WAS RESTING IN BED, EYES WERE CLOSED. DID NOT AROUSE TO VOICE SHE IS VERY HARD OF HEARING. RESPIRATIONS ARE EVEN AND NONLABORED. CALL LIGHT IS WITHIN REACH.
[2020-05-13 07:31] LABS: HEMATOCRIT 25.6 % (37.0-47.0); HEMOGLOBIN 8.2 g/dl (12.5-16.0); MEAN CORPUSCULAR HEMOGLOBIN 32 pg (27.0-31.0)
--- NOTE | 2020-05-13 11:00 | NUR ---
PATIENT HAD BEDSIDE THORACENTESIS PERFORMED BY DR. BULL. TOLERATED WELL. 900 ML FLUID REMOVED AND TAKEN TO LAB.
[2020-05-13 12:22] LABS: PLEURAL FLUID RBC 0 /mm3 (0-0); PLEURAL FLUID WBC 253 /mm3
[2020-05-13 12:25] LABS: PLEURAL FLUID APPEARANCE CLEAR; PLEURAL FLUID COLOR YELLOW
[2020-05-13 12:39] LABS: GLUCOSE,PLEURAL FLUID 103 mg/dL
[2020-05-13 12:49] LABS: TOTAL PROTEIN,PLEURAL FLUID 2.1 gm/dL
--- NOTE | 2020-05-13 19:31 | NUR ---
REPORT GIVEN TO ESTEVAN GAFFNEY.
--- NOTE | 2020-05-13 20:30 | NUR ---
Initial shift assessment done- pt states she is feeling much better- not so much of the productive cough today-- requesting a saltine cracker, has not had any food tody-- did get her a cracker and she was able to eat-3 crackers- she was very happy about this, PICC to Irvin OBRIEN with yellow urine with some sediment.
[2020-05-14] VITALS (9 sets, daily range): BP systolic 93–122; BP diastolic 45–59; PULSE 60–84; TEMP 97.3–98.6
--- NOTE | 2020-05-14 05:54 | NUR ---
Quiet night-- did get some rest tonight, VSS, in better spirits today--feels better now that she is not coughing up so much sputum-- repositioned throughout the night-- was up to the bathroom x1 - has a soft bowel movement-
[2020-05-14 06:12] LABS: BASO % 0.1 % (0.0-2.0); GRAN # 9.4 (1.4-6.5); GRAN % 78.1 % (42.2-75.2); LYMPH # 1.9 (1.2-3.4); LYMPH % 15.8 % (20.0-51.0); MEAN CELL VOLUME 103 fl (80.0-100.0); MEAN CORPUSCULAR HGB CONC 32 g/dl (33.0-37.0); MEAN PLATELET VOLUME 11.6 fl (7.4-10.4); MONO # 0.6 (0.1-0.6); MONO % 5.2 % (1.7-9.3); PLATELET COUNT 111 K/mm3 (130-400); RED BLOOD COUNT 2.69 M/mm3 (4.10-5.30); REDCELL DISTRIBUTION WIDTH-CV 19.9 % (11.5-14.5)
[2020-05-14 06:17] LABS: HEMATOCRIT 27.6 % (37.0-47.0); HEMOGLOBIN 8.8 g/dl (12.5-16.0); MEAN CORPUSCULAR HEMOGLOBIN 33 pg (27.0-31.0)
[2020-05-14 06:27] LABS: ALBUMIN 2.6 gm/dL (3.5-5.0); BILIRUBIN,TOTAL 0.8 mg/dL (0.0-1.0); CALCIUM 8.1 mg/dL (8.4-10.2); CREATININE, serum 0.74 (0.52-1.25); PHOSPHOROUS 2.9 mg/dL (2.5-4.5); POTASSIUM 4.3 mmol/L (3.4-5.0); TOTAL PROTEIN 4.9 gm/dL (6.4-8.2)
--- NOTE | 2020-05-14 10:00 | NUR ---
PATIENT IS AWAKE AND ALERT IN ROOM, IS CURRENTLY DENYING PAIN. IS EAGERLY AWAITING HER THORACENTESIS AND ASKS WHEN IT HAPPENS, SHE VERBALIZED THAT SHE FELT BETTER AFTER THE FIRST ONE YESTERDAY. SHE WAS ABLE TO TAKE MEDICATIONS CRUSHED IN PUDDING AND STATED IT WAS MUCH BETTER THAT WAY. DID HAVE THICKENED APPLE JUICE WELL. SHE STATED SHE DIDNT MIND IT. DID HAVE SOME ASSISTANCE WITH EATING, BUT ATE VERY LITTLE. DOES REQUEST ICE CHIPS AT BEDSIDE. CALL LIGHT IS WITHIN REACH.
[2020-05-14 14:06] LABS: GLUCOSE,PLEURAL FLUID 82 mg/dL; PLEURAL FLUID RBC 1000 /mm3 (0-0); PLEURAL FLUID WBC 627 /mm3; TOTAL PROTEIN,PLEURAL FLUID 2.1 gm/dL
[2020-05-14 14:16] LABS: PLEURAL FLUID APPEARANCE CLEAR; PLEURAL FLUID COLOR YELLOW
--- NOTE | 2020-05-14 14:35 | NUR ---
PATIENT HAD THORACENTESIS PROCEDURE DONE BY DR. BULL, TOLERATED WELL. THIS WAS FINISHED BY 1345. SAMPLES TAKEN TO LAB.
--- NOTE | 2020-05-14 18:38 | NUR ---
REPORT GIVEN TO ONCOMING SHIFT
--- NOTE | 2020-05-14 19:15 | NUR ---
Received report from [facility]. Seen patient awake, lying in bed. She is alert and oriented. With hines catheter draining cloudy yellow urine. With PICC on right upper arm. BLE +2. Denies pain. Call light within reach.
[2020-05-15 03:46] VITALS: BP 107/61; PULSE 98; TEMP 98.4
--- NOTE | 2020-05-15 06:05 | NUR ---
Assisted patient to the bathroom with the use of walker and gait belt. Patient had a soft formed, brown bowel movement. Provided bath wipes and shower cap. Pericare done. Gown, bed linens and blankets were changed. Assisted patient back to bed. Repositioned and boost up in bed. Applied barrier ointment in her buttocks. She denies pain. Will endorse to day shift nurse.
[2020-05-15 07:25] VITALS: BP 96/47; PULSE 73; TEMP 97.5
[2020-05-15 07:30] LABS: ALBUMIN 2.8 gm/dL (3.5-5.0); BILIRUBIN,TOTAL 0.8 mg/dL (0.0-1.0); CALCIUM 8.4 mg/dL (8.4-10.2); CREATININE, serum 0.79 (0.52-1.25); PHOSPHOROUS 2.8 mg/dL (2.5-4.5); POTASSIUM 3.9 mmol/L (3.4-5.0); TOTAL PROTEIN 5.1 gm/dL (6.4-8.2)
--- NOTE | 2020-05-15 09:00 | NUR ---
PICC intact right upper arm. With sterile technique right upper arm PICC dressing change done with insertion site cleansed with ChloraPrep 1, chlorhexidine impregnated disc applied, skin prep, StatLock, and Tegaderm applied. No signs or symptoms of IV complications noted. No concerns voiced. Arm wrapped with Grover to protect catheter.
[2020-05-15 11:44] VITALS: BP 108/55; PULSE 81; TEMP 97.2
[2020-05-15 16:15] VITALS: BP 99/53; PULSE 76; TEMP 98.1
--- NOTE | 2020-05-15 16:59 | NUR ---
Drawing In Machine Tender attended clinical rounds with the team. Patient is being screened by IPR, who may be able to take patient tomorrow. SW will continue to follow.
--- NOTE | 2020-05-15 18:26 | NUR ---
PATIENT IS RESTING IN BED, HEAD IS ELEVATED, DIETARY DELIVERED TRAY AND SET UP FOR PATIENT. SHE STATES SHE IS PAIN FREE. CALL LIGHT IS WITHIN REACH
[2020-05-15 19:59] VITALS: BP 100/49; PULSE 69; TEMP 97.6
--- NOTE | 2020-05-15 22:00 | NUR ---
Pt assessment completed, charted, roomair, alert, oriented. Meds provided as per DEC, tolerated well. Helped to settled on the bed. No further need at this time.
[2020-05-16] VITALS: BP 95/45; PULSE 75; TEMP 97.9
[2020-05-16 03:56] VITALS: BP 106/53; PULSE 74; TEMP 97.9
--- NOTE | 2020-05-16 05:39 | NUR ---
Pt had an uneventful night, slept through out the night. Changed and position changed frequently. Call light on reach. No further needs at this time.
[2020-05-16 07:11] LABS: BASO % 0.1 % (0.0-2.0); GRAN # 9.3 (1.4-6.5); GRAN % 81.1 % (42.2-75.2); LYMPH # 1.4 (1.2-3.4); LYMPH % 12.4 % (20.0-51.0); MEAN CELL VOLUME 102 fl (80.0-100.0); MEAN CORPUSCULAR HGB CONC 32 g/dl (33.0-37.0); MEAN PLATELET VOLUME 11.4 fl (7.4-10.4); MONO # 0.7 (0.1-0.6); MONO % 5.9 % (1.7-9.3); PLATELET COUNT 113 K/mm3 (130-400); RED BLOOD COUNT 2.69 M/mm3 (4.10-5.30); REDCELL DISTRIBUTION WIDTH-CV 19.9 % (11.5-14.5)
[2020-05-16 07:15] VITALS: BP 100/44; PULSE 74; TEMP 98.1
[2020-05-16 07:16] LABS: HEMATOCRIT 27.3 % (37.0-47.0); HEMOGLOBIN 8.7 g/dl (12.5-16.0); MEAN CORPUSCULAR HEMOGLOBIN 32 pg (27.0-31.0)
[2020-05-16 07:25] LABS: CALCIUM 8.2 mg/dL (8.4-10.2); CREATININE, serum 0.66 (0.52-1.25); POTASSIUM 3.8 mmol/L (3.4-5.0)
--- NOTE | 2020-05-16 08:08 | NUR ---
Patient is alert and oriented. open stage 2 pressure ulcer in sacral region. applied barrier cream. informed patient to stay off sacral region. patient resting in bed at the moment.
--- NOTE | 2020-05-16 09:23 | NUR ---
Called and spoke with pt's daughter, Heather, to see if she was available to be present for clinical rounds via speaker phone. Heather reported that she was currently driving up to the hospital and that she would be here in about [address] Alarcon to follow up with pt and daughter once she arrives.
--- NOTE | 2020-05-16 10:29 | NUR ---
Bryan catherer discontinued. daughter at bedside.
[2020-05-16] MEDS ORDERED: ELIQUIS 2.5 PO (11:16)
[2020-05-16 11:18] VITALS: BP 124/57; PULSE 72; TEMP 97.5
[2020-05-16] MEDS ORDERED: PREDNISONE10 MG PO (11:19)
[2020-05-16] MEDS ORDERED: PACERONE100 MG PO (11:19)
[2020-05-16] MEDS ORDERED: LIPITOR20 MG PO (11:21)
[2020-05-16] MEDS ORDERED: ASPIRIN 81M81 MG/TA2 PO (11:21)
[2020-05-16] MEDS ORDERED: IPRATROPIUM BROM3 M1 IH (11:23)
[2020-05-16] MEDS ORDERED: LASIX 40MG TABL40 MG PO (11:23)
[2020-05-16] MEDS ORDERED: K-TAB20 PO (11:24)
--- NOTE | 2020-05-16 12:44 | NUR ---
Rn Invasive attended clinical rounds with the team and patient's daughter is at bedside. Patient to discharge to [facility] today. SW contacted [facility] to provide update on discharge. No additional needs at this time.
[2020-05-16 15:40] VITALS: BP 124/57; PULSE 72; TEMP 97.5
--- NOTE | 2020-05-16 16:26 | NUR ---
patient transfer to room [facility] for rehabilitation. daughter informed.
== END 2020-05-16 16:00 | DRG 870 ==
LOC: ICU 09:41 → MEDICAL 10:16 → ICU 10:16 → MEDICAL 05-10 17:16
PROVIDERS: Family Medicine; Internal Medicine Pulmonary Disease; Physician Assistant; Student in an Organized Health Care Education/Training Program; ADMIT Hospitalist
PROC: 5A1955Z Respiratory Ventilation, Greater than 96 Consecutive Hours (ICD-10-PCS; principal; 2020-05-04)
PROC: 0BH17EZ Insertion of Endotracheal Airway into Trachea, Via Natural or Artificial Opening (ICD-10-PCS; 2020-05-06)
PROC: 0W993ZZ Drainage of Right Pleural Cavity, Percutaneous Approach (ICD-10-PCS; 2020-05-13)
PROC: 0W9B3ZZ Drainage of Left Pleural Cavity, Percutaneous Approach (ICD-10-PCS; 2020-05-14)
DX: A41.9 Sepsis, unspecified organism (principal); R65.21 Severe sepsis with septic shock; J18.9 Pneumonia, unspecified organism; J96.01 Acute respiratory failure with hypoxia; J96.02 Acute respiratory failure with hypercapnia; I21.A1 Myocardial infarction type 2; N17.9 Acute kidney failure, unspecified; I50.30 Unspecified diastolic (congestive) heart failure; J90 Pleural effusion, not elsewhere classified; E44.0 Moderate protein-calorie malnutrition; I11.0 Hypertensive heart disease with heart failure; Z66 Do not resuscitate; E78.5 Hyperlipidemia, unspecified; F32.9 Major depressive disorder, single episode, unspecified; M81.0 Age-related osteoporosis without current pathological fracture; E83.42 Hypomagnesemia; E83.39 Other disorders of phosphorus metabolism; D75.82 Heparin induced thrombocytopenia (HIT); I48.91 Unspecified atrial fibrillation; I73.9 Peripheral vascular disease, unspecified; I99.8 Other disorder of circulatory system; D64.9 Anemia, unspecified; I27.20 Pulmonary hypertension, unspecified; Z20.828 Contact with and (suspected) exposure to other viral communicable diseases; Z68.24 Body mass index [BMI] 24.0-24.9, adult
CPT/HCPCS: 99223-AI; 99232-AI; 99233-AI; 99239; A9284; C1751; J0282; J0456; J1644; J1650; J1652; J1815; J1940; J2405; J2543; J2704; J2920; J3010; J3370; J3475; J3480; J7030; J7050; J7060; J7120; J7512

== ENCOUNTER 2020-05-16 11:32 | Inpatient (IN) | payer MEDICARE ==
[~2020-05-16] VITALS: Ht 154.9 cm; Wt 42.7 kg
[~2020-05-16 11:32] MED LIST: AMBIEN 5MG TABLE5 MG PO; ASPIRIN 81M81 MG/TA2 PO; CARAFATE 1GM1 G PO; COREG 6.256.25 MG/TA PO; ELIQUIS 2.5 PO; FOSAMAX 70MG TA70 MG PO; IPRATROPIUM BROM3 M1 IH; K-TAB20 PO; LASIX 40MG TABL40 MG PO; LIPITOR 10MG10 MG PO; LIPITOR20 MG PO; NORCO 325 MG-101 TAB PO; PACERONE100 MG PO; PREDNISONE10 MG PO; PROTONIX 40MG T40 MG PO; REMERON 15M15 MG/TA1 PO; TEMOVATE0.051 TOP
--- NOTE | 2020-05-16 16:05 | NUR ---
PATIENT ARRIVED TO ROOM 340 VIA WHEELCHAIR FROM MEDICAL. PATIENT ORIENTED TO ROOM AND SETTELED. BED ALARM ON. CALL LIGHT IN REACH. NOTIFIED OF PATIENT ARRIVAL TO UNIT.
[2020-05-16 17:10] VITALS: BP 120/55; PULSE 67; TEMP 98.4
[2020-05-16 18:43] VITALS: BP 120/55; PULSE 67; TEMP 98.4
--- NOTE | 2020-05-16 19:08 | NUR ---
Patient came over around 1605 from medical unit. Patient was assisted to bathroom with aide when she was assisted to the ground. Patient states she was not far enough back and missed the toilet. Denies pain or hitting her head. x2 assist in standing and transferring to toilet. Patient resting in bed at bedside shift report. Heels floating and on side, denied any needs at this time. Bed in low, call light within reach, and bed alarm on.
--- NOTE | 2020-05-16 19:10 | NUR ---
Received report from Conrado. Seen patient awake, lying in bed. she is alert and oriented. With PICC on right upper arm. Call light within reach. She has some cough with phlegm. Denies pain. Call light within reach. Bed alarm on.
--- NOTE | 2020-05-16 21:30 | NUR ---
Patient reports pain on her cocyx. Pain score of 6/10. Tylenol PRN given.
--- NOTE | 2020-05-16 23:46 | NUR ---
Assisted patient to the bahroom with the use of walker and gait belt. Patient was able to urinate. Assisted back to bed. Repositioned patient on her left side.
[2020-05-17 05:43] VITALS: BP 114/61; PULSE 71; TEMP 97.5
--- NOTE | 2020-05-17 14:40 | NUR ---
PATIENT RESTING IN BED WITH DAUGHTER PRESENT AT THE BEDSIDE. SHIFT ASSESSMENT COMPLETE. PATIENT STATES THAT SHE NEEDS TO USE THE RESTROOM. PATIENT ASSISTED TO BATHROOM WITH GAIT BELT AND WALKER WITH SBA TO CGA. GAIT STEADY. PATIENTS SACRAL DRESSING REMOVED. PERIANAL AREA CLEANSED WITH WIPES. BARRIER CREAM APPLIED TO PRESSURE ULCER. NEW ALLEVYN DRESSING APPLIED. PATIENT ABLE TO PAYROLL MANAGER PLACE WITH WALKER WHILE CLEANING AND CHANGING COCCYX. PATIENT ABLE TO PULL UP AND DOWN BRIEFS AND PANTS INDEPENDENTLY. PICC LINE CAPS CHANGED PER PROTOCOL. FAMILY HISTORY REVIEWED WITH PATIENT AND DAUGHTER. ECCHYMOSIS TO BILATERAL HEELS NOTED, SKIN INTACT. DAUGHTER STATES THAT THE PATIENT WAS COMPLAINING OF PAIN IN HER HEELS YESTERDAY. 4TH & 5TH TOES TO RIGHT FOOT ARE BLACK FROM [place], PHYSICIAN AWARE, FOLLOW UP OUTPATIENT. BLE FLOATED ON TWO PILLOWS. 1+ PITTING-EDEMA TO ANKLES BILATERALLY. PATIENT REPOSITIONED ONTO LEFT SIDE WITH PILLOW TO OFFLOAD PRESSURE ULCER. PATIENT AND DAUGHTER EDUCATED ON IMPORTANCE OF FREQUENT REPOSITIONING AND NUTRITION FOR ULCER HEALING. WILL PLACE ORDER FOR Q2H REPOSITIONING. DAUGHTER ASSISTING PATIENT IN CREATING A MENU OF ITEMS THAT THE PATIENT WILL EAT FOR MEALS TOMORROW. PATIENT OFFERED FOAM OR AIR MATTRESS. PATIENT REQUESTING AIR MATTRESS. WILL PUT IN PLACE BEFORE END OF SHIFT. BED ALARM ON. CALL LIGHT WITHIN REACH. NO OTHER NEEDS AT THIS TIME.
--- NOTE | 2020-05-17 15:47 | NUR ---
Alley Cleaner met with the patient and the patient's daughter, Heather #[phone] to complete initial intake, the patient is new to [facility]. The patient lives alone in [place]. The patient has a walker but will need a new one if it is recommended. Prior to this hospitalziation the patient was independent with ADLs. The patient's PCP is Dr. Cooper from [facility]. The [email or web address] in [place]. The patient has advanced directives in the EMR and designate, Heather. A family meeting was set up for Friday, 05/24 at 1330. Heather does not know if she will be present so it may have to be via telephone. After intake, SW presented the Team Conference notes. There were no questions at this time. Will continue to follow.
[2020-05-17 17:53] VITALS: BP 119/59; PULSE 83; TEMP 97.7
--- NOTE | 2020-05-17 21:00 | NUR ---
PT RESTING IN BED. HAD BEEN ASLEEP. PT SOFT SPOKEN. PT DENIES SORE THROAT. PT ADMITS TO COCCYX DISCOMFORT. DECLINED TYLENOL. SACRAL DRSG INT ACT. AIR MATTRESS IN PLACE. SEE ASSESSMENT FOR RT FOOT 4TH & 5TH TOE PARTIALLY NECTROTIC. CALL LIGHT IN REACH. BED ALARM SET.
[2020-05-18 05:49] VITALS: BP 102/48; PULSE 84; TEMP 98.5
[2020-05-18 07:27] LABS: MEAN CELL VOLUME 102 fl (80.0-100.0); MEAN CORPUSCULAR HGB CONC 32 g/dl (33.0-37.0); MEAN PLATELET VOLUME 11.6 fl (7.4-10.4); PLATELET COUNT 120 K/mm3 (130-400); RED BLOOD COUNT 2.66 M/mm3 (4.10-5.30); REDCELL DISTRIBUTION WIDTH-CV 19.7 % (11.5-14.5)
[2020-05-18 07:29] LABS: HEMATOCRIT 27.1 % (37.0-47.0); HEMOGLOBIN 8.7 g/dl (12.5-16.0); MEAN CORPUSCULAR HEMOGLOBIN 33 pg (27.0-31.0)
[2020-05-18 07:36] LABS: CALCIUM 8.5 mg/dL (8.4-10.2); CREATININE, serum 0.81 (0.52-1.25); POTASSIUM 3.6 mmol/L (3.4-5.0)
[2020-05-18 07:50] VITALS: BP 93/56
[2020-05-18 08:17] LABS: BAND 8 % (0-10); LYMPHOCYTE 19 % (20.0-51.0); NEUTROPHILS 68 % (42.0-75.2); PLATELET ESTIMATE DECREASED (NORMAL)
--- NOTE | 2020-05-18 11:06 | NUR ---
Patient working with therapy. Denies pain at this time. She has a stage II to her coccyx area and applied aquacel AG to area and secured with a mepilex. Patient has three small open areas to her perineal area, applied ointment. Will continue to monitor.
[2020-05-18 18:13] VITALS: BP 96/51; PULSE 83; TEMP 97.6
--- NOTE | 2020-05-18 19:42 | NUR ---
Patient attended all therapies today. She has an open area to her coccyx and applied aquacell AG to area and secured with mepilex. Patient has three small open area to her perineal area and applied barrier cream.
--- NOTE | 2020-05-18 21:00 | NUR ---
PT RESTING IN BED. A&OX4. COMMUNICATION ALITTLE DIFFICULT WITH THAI. VOISE WEAK. ABLE TO MAKE NEEDS KNOWN. DENIES PAIN AT PRESENT TIME. ASSISTED UP TO BR WITH WALKER. SLOW WEAK GAIT. INCONTINENT URINE IN BRIEF. ZINC OINTMENT APPLIED TO LABIAL LESIONS. DRSG TO SACRAL AREA. CALL LIGHT IN REACH. BED ALARM SET.
[2020-05-19 02:09] VITALS: BP 108/56; PULSE 86; TEMP 98.2
--- NOTE | 2020-05-19 13:37 | NUR ---
Admission QIM scores were reviewed by the team. Code of 4 chosen for sit to lying was determined by team discussion to be the most usual performance before interventions for this patient during the assessment period. Code of 3 chosen for lying to sitting on side of bed was determined by team discussion to be the most usual performance for this patient during the assessment period.--Tamie Canchola, PD
--- NOTE | 2020-05-19 14:32 | NUR ---
PATIENT HAS THREE SMALL OPEN SORES EACH APPROXIMATELY 0.5 CM ROUND. AREAS CLENASED AND ZINC CREAM APPLIED. PATIENT REPORTED PAIN WAS RELIEVED WITH OINTMENT. DISCUSSED WITH PATIENT THE IMPORTANCE OF TURNING FREQUENTLY TO STAY OFF BOTTOM, ALSO THE IMPORTANCE OF FLOATING HEELS. PATIENT IS X1 CGA WITH TRANSFERS TO THE BATHROOM. PATIENT IS INDEPENDENT WITH TOILETING HYGIENE. PATIENT EATS INDEPENDENTLY WITH SET-UP ASSITANCE LIKE OPENING CONTAINERS. CONTINUES TO TAKE PILLS CRUSHED IN PUDDING.
[2020-05-19 15:53] VITALS: BP 98/58; PULSE 80; TEMP 98.1
--- NOTE | 2020-05-19 16:14 | NUR ---
Quebracho Tanner met with the patient and the patient's daughter, Ria to follow up before the weekend. The patient stated she was tired but there are no questions or concerns. Will continue to follow.
--- NOTE | 2020-05-19 18:19 | NUR ---
DAUGHTER VISITED PATIENT THIS AFTERNOON. UPDATED/CLARIFIED DNR STATUS WITH PATIENT AND DAUGHTER. MORE ZINC CREAM APPLIED TO SORES ON RIGHT LABIA TWICE THIS EVENING WITH TOILETING. CONTINUE TO FLOAT PATIENT'S HEELS AND ENCOURAGE TURNING/REPOSITIONING EVERY 2 HOURS. BED IN LOW, SIDE RAILS UP, BED ALARM ON, CALL LIGHT WITHIN REACH, LAYING IN BED DURING BEDSIDE SHIFT REPORT.
--- NOTE | 2020-05-19 19:31 | NUR ---
Pt currently lying in bed awake. Pt has her call light within reach. Pt has her heels floated and is lying on her right side. Her bed is in lowest position.
[2020-05-20 04:31] VITALS: BP 95/51; PULSE 90; TEMP 98.3
--- NOTE | 2020-05-20 06:15 | NUR ---
Pt has had a very good night. Pt has been encouraged every 2 hours to reposition, pt did not want to be repositioned some times. Pt went to the restroom several timees during the night. Pt was cleaned after every void and zinc was applied to her labia each time. Pt dressing on her bottom was clean, dry and intact. Pt heels were also floated each time she got back into bed. Pt is currently back in bed and has her call light within reach and her bed is in lowest position.
[2020-05-20 17:25] VITALS: BP 87/47; PULSE 86; TEMP 99.1
--- NOTE | 2020-05-20 18:00 | NUR ---
Had physical and occupational therapy most of AM. Ambulatory with walker and one staff assist. Was incontinent of urine x 2 this shift by the time she got to the bathroom. No c/o pain. Encouraged to use words for needs. Took meds crushed in pudding. Occasional cough with productive thin white sputum.
--- NOTE | 2020-05-20 19:31 | NUR ---
PATIENT LAYING IN BED RESTING WITH EYES CLOSED DURING CHANGE OF SHIFT REPORT FROM DAY SHIFT NURSE. BED ALARM ON. PATIENT DENIES ANY NEEDS AT THIS TIME.
--- NOTE | 2020-05-20 20:00 | NUR ---
OBSERVED SOME WEAKNESS WITH PATIENT REPOSITIONING SELF FROM LAYING TO SITTING AT SIDE OF BED, REQUIRES ASSISTANCE USING BED, RAISING HOB TO SITTING POSITION. GAIT STEADY BUT SLOW IN PROGRESS. DENIES PAIN OR ANY NEEDS. BED ALARM ON.
[2020-05-20 22:10] VITALS: BP 100/50
--- NOTE | 2020-05-21 03:46 | NUR ---
PATIENT SLEEPING WITH EVEN/NONLABORED BREATHING. BED ALARM ON.
[2020-05-21 05:00] VITALS: BP 96/49; PULSE 82; TEMP 97.6
--- NOTE | 2020-05-21 06:45 | NUR ---
PATIENT SLEEPING DURING CHANGE OF SHIFT REPORT GIVEN TO DAY SHIFT NURSEMIKE. BED ALARM ON.
--- NOTE | 2020-05-21 07:26 | NUR ---
Assist patient into bathroom. Gait steady with use of walker. Mepilex to sacral area CDI. Patient has three sores to right labia that bleed when wiped, zinc oxide applied at this time. Patient returns to bed. Sits up to eat breakfast. Denies pain. Patient has 1+ lower right arm edema which she explains is normal for her. Voices no further needs at this time.
[2020-05-21 07:28] VITALS: BP 103/59
--- NOTE | 2020-05-21 09:20 | NUR ---
Lying in bed in supine position with eyes closed. Respirations even and unlabored. No signs or symptoms of discomfort noted at this time.
--- NOTE | 2020-05-21 11:15 | NUR ---
Assist patient into bathroom. Voids without difficulty. Patient returns to bed at this time. Denies pain. Voices no further needs.
--- NOTE | 2020-05-21 12:45 | NUR ---
Assisted patient into bathroom. Patient voids. Mepilex to pressure ulcer on coccyx removed and new Mepilex applied. Stage 2 pressure ulcer with wound bed moist, pink in color. Patient returns to bed. Assessed right labial ulcers, patient having some tenderness to area when cleaning with wipe. Zinc oxide applied to area. Patient assisted into comfortable position. Denies any additional needs at this time.
--- NOTE | 2020-05-21 14:03 | NUR ---
Lying in bed with eyes closed. Opens eyes when enter room. Denies needs or concerns at this time.
[2020-05-21 15:56] VITALS: BP 86/53; PULSE 83; TEMP 98
--- NOTE | 2020-05-21 16:07 | NUR ---
Patient sitting up in bed visiting with daughter in room. Denies pain. Encouraged patient to drink more water as BP continues to run low. Patient says that she does not like water because it makes her feel like she wants to get sick. Does not like juice. Provided patient with milk and ice chips. Daughter also brought in some home made food for patient to eat. Patient denies any further needs at this time.
--- NOTE | 2020-05-21 17:34 | NUR ---
Sitting up in bed watching TV. Denies pain or any needs at this time.
--- NOTE | 2020-05-21 18:40 | NUR ---
PATIENT RESTING IN BED WATCHING TV DURING CHANGE OF SHIFT REPORT RECEIVED FROM DAY SHIFT NURSE. BED ALARM ON.
--- NOTE | 2020-05-21 19:32 | NUR ---
PATIENT UP WITH HELP, REPORT PAIN TO COCCYX WITH SITTING, OBSERVED COCCYX DRSG IN PLACE. OBSERVED DARK SEDIMENT WITH VOIDING, OBSERVED RIGHT LABIA WITH SMALL OPEN AREAS. REPORTS NO BM FOR 4 DAYS, REPORTS CAN FEEL BM TO LOWER COLON BUT DENIES PAIN WITH ABD AT THIS TIME.
--- NOTE | 2020-05-21 20:00 | NUR ---
OBSERVED PATIENT STATING SHE DOES NOT LIKE CHOCOLATE, INDICATING HAD RECEVIED X2 CHOCOLATE ENSURE SUPPLEMENTAL DRINKS, REMOVED REMAINING UNOPENED BOTTLE OF CHOCOLATE ENSURE, WITH PATIENT INDICATING SHE WOULD FINISH REMAINDER OF THE ONE CHOCOLATE ENSURE DRINK SNACK SENT TO HER TODAY BUT WOULD TAKE ANOTHER ENSURE DRINK IF IT'S VANILLA FLAVORED. VANILLA ENSURE X1 BOTTLE GIVEN TO PATIENT. BED ALARM ON. NO OTHER NEEDS REPORTED.
--- NOTE | 2020-05-22 02:44 | NUR ---
PATIENT SLEEPING, BREATHING NONLABORED AND EVEN. BED ALARM ON.
[2020-05-22 05:15] VITALS: BP 99/50; PULSE 91; TEMP 98.2
--- NOTE | 2020-05-22 07:37 | NUR ---
CHANGE OF SHIFT REPORT GIVEN TO DAY SHIFT NURSES, CARA. BED ALARM ON.
--- NOTE | 2020-05-22 13:47 | NUR ---
Twister Hand followed up with patient with from the weekend. Patient is resting and denies any questions or concerns at this time. SW will continue to follow.
--- NOTE | 2020-05-22 14:10 | NUR ---
PICC intact right upper arm with sterile dressing change done with insertion site cleansed with chloraprep x 1, chlorhexidine impregnated disk applied, skin prep, stat lock, and tegaderm applied. Grover was too tight and it was removed. Swelling noted on lower forearm. Right arm elevated and heat applied. will re-evaluate tomorrow. Primary care nurse informed.
[2020-05-22 15:51] VITALS: BP 89/53; PULSE 93; TEMP 98.9
--- NOTE | 2020-05-22 19:16 | NUR ---
Patient has pain from sacral/coccygeal area, new anal fissure noted to right side of anus. zinc cream applied, continuing to turn and keep patient off of site. Cleansing with perineal wipes. Zinc cream also applied to stage II pressure sore on coccyx, aquacell ag and allevyn dressing in place. Three round open sores to right labia are healing, zinc applied there as well. Patient complains of tiredness after therapy today. Patient helped to toilet at bedside shift report. Patient rolled on left side with heels floating in bed at bedside shift report. Call light within reach, bed alarm on, bed in low.
--- NOTE | 2020-05-22 19:57 | NUR ---
Received report from ESTEVAN Armstrong. Pt has her call light within reach and her bed is in lowest position.
--- NOTE | 2020-05-23 04:11 | NUR ---
Pt is currently sleeping in bed. Pt has been up 3 times so far. Pt did have a time during the night where she was coughing quite a bit. Zinc was applied each time the pt voided. Pt was also cleaned with wipes even after she wiped her self just to make sure she was clean and dry. Pt ambulated with a gait belt and a walker. Her slip resistant socks were put on each time she got up. Pt heels were also floated each time as well. Pt was also repositioned often to releive pressure from her bottom.
[2020-05-23 06:06] VITALS: BP 121/64; PULSE 96; TEMP 98.6
--- NOTE | 2020-05-23 07:28 | NUR ---
Reported off to Levi RN's. Pt is currently sleeping in bed. Pt has her call light within reach and her bed is in lowest position. Pt has had a good night. Pt agreed to rotate from side to side to take pressure off her bottom. She is currently on her back and sleeping.
--- NOTE | 2020-05-23 10:24 | NUR ---
SANGUINEOUS DRANAIGE NOTED AT INSERTION SITE, FLUSHES EASILY, NO INFILTRATION, FLEBATOUS NOTED.
--- NOTE | 2020-05-23 12:15 | NUR ---
PICC intact right upper arm with sterile dressing change done due to disk with red drainage. insertion site cleansed with chloraprep x 1, chlorhexidine impreganted disk applied, skin prep, stat lock, and tegaderm applied. no further drainage noted. swelling has resolved. no signs or symptoms of IV complications noted. no concerns voiced.
[2020-05-23 17:43] VITALS: BP 88/54; PULSE 89; TEMP 98.1
--- NOTE | 2020-05-23 19:19 | NUR ---
DISCUSSED WITH PATIENT OTHER ALTERNATIVES TO INCREASE FLUID INTAKE, DECIDED ON ICE TEA WITH SUGAR. CONTINUE TO FLOAT HEELS AND REPOSITION FREQUENTLY. AQUACELL AG, ZINC, AND ALLEVYN TO STAGE II PRESSURE INJURY WHICH IS HEALING. ZINC TO NEW PRESSURE SORE ON RIGHT SIDE OF ANUS. PATIENT MAD MOD-I WITH WALKER IN ROOM. NEXT NURSE ENCOURAGED TO CONTINUE CALLING ESPECIALLY AT NIGHT. PATIENT SEEMS COMPLIANT. BED IN LOW, AND CALL LIGHT WITHIN REACH AT BEDSIDE SHIFT REPORT.
--- NOTE | 2020-05-23 19:40 | NUR ---
CHANGE OF SHIFT REPORT RECEIVED FROM DAY SHIFT NURSES. PATIENT UP INDEPENDENTLY IN ROOM WITH NO PROBLEMS REPORTED.
[2020-05-24 05:36] VITALS: BP 100/49; PULSE 88; TEMP 98.6
--- NOTE | 2020-05-24 07:27 | NUR ---
CHANGE OF SHIFT REPORT GIVEN TO DAY SHIFT NURSENIKOLE. PATIENT UP INDEPENDENTLY IN ROOM WITH NO PROBLEMS.
--- NOTE | 2020-05-24 10:40 | NUR ---
Patient asked staff to help her with getting her covers on. She is currently resting in bed, is independent in her room.
--- NOTE | 2020-05-24 16:36 | NUR ---
Retail Customer Service Representative participated in family meeting which included patient's daughter Lee, IPR Director Tamie, and PT/OT/STRandall Willett opened the meeting by explaining it's purpose then the therapy team reviewd patient's progress. Home Health is recommended and patient's daughter states they would like to use [facility] for HH services. SW to fax referral. Patient to discharge 05/26/20. SW provided copy of team conference notes to patient and will continue to follow.
[2020-05-24 18:26] VITALS: BP 99/39; PULSE 91; TEMP 98.4
--- NOTE | 2020-05-24 19:00 | NUR ---
PATIENT CALLED OUT TO STAFF NEEDING HELP, PATIENT HAS BEEN UP INDEPENDENTLY IN ROOM WITH NO PROBLEMS. UPON ENTERING ROOM, OBSERVED PATIENT STANDING AT SIDE OF BED WITH RIGHT LOWER LEG CAUGHT BETWEEN LOWER BED RAIL AND BED FRAME, PATIENT STATES SHE DOES NOT KNOW HOW SHE ENDED UP WITH HER LEG CAUGHT BETWEEN LOWER BED RAIL AND BED FRAME. STAFF WAS ABLE TO EXTRICATE PATIENT'S RIGHT LOWER LEG CAREFULLY FROM BETWEEN RAIL AND FRAME. PATIENT DENIES PAIN WITH MOVEMENT OF RIGHT KNEE/RIGHT ANKLE DURING ASSESSMENT OF RLE, OBSERVED NO OUTWARD SIGNS OF OPEN SKIN INJURIES, PATIENT DENIES PAIN WITH TACTILE TOUCH TO BARRETT/CALF AND SEAN SIDES OF RIGHT CALF AND PATIENT DENIES PAIN WITH WEIGHT PUT ON RIGHT LEG WITH WALKING.
--- NOTE | 2020-05-24 20:42 | NUR ---
Patient is Mod I in room with a walker. Patient attended all therapies. Denied pain this shift. Daughter stopped by this afternoon and patient had a family meeting. Patient continues to have low BP's and paramaters were set for Lasix to hold if SBP less then 110. Patient currently resting in bed, call light in reach and denies pain.
--- NOTE | 2020-05-24 23:03 | NUR ---
PATIENT UP INDEPENDENTLY IN ROOM WITH NO C/O. CONTINUES TO USE WALKER WITH AMBULATION IN ROOM
[2020-05-25 05:32] VITALS: BP 96/50; PULSE 101; TEMP 98
--- NOTE | 2020-05-25 07:02 | NUR ---
CHANGE OF SHIFT REPORT GIVEN TO DAY SHIFT NURSEMINDA. PATIENT MOD I IN ROOM WITH NO FURTHER PROBLEMS OBSERVED OR REPORT DURING THE NIGHT.
--- NOTE | 2020-05-25 09:55 | NUR ---
Assessment completed, alert/oriented, vital signs stable, denies pain, heart RRR/distal pulses are palapble, Lasix held per ordered parameters, other a.m meds given crushed in pudding and patient did well without any signs of aspiration or coughing, zinc ointment applied to her ulcer on her coccyx, she did not eat much of her breakfast, she has worked with ST and is now sitting up in the chair waiting for PT, denies needs
--- NOTE | 2020-05-25 17:00 | NUR ---
Energy Attorney contacted [facility] and faxed referral. SW received a message from Guera at [facility] who advised they would have to decline referral as they do not have enough nursing staff to accomodate referral. DYLON contacted patient's daughter, Lee to provide update and advised that on the message, Guera reported that [facility] provides services to [facility]. Lee is agreeable to have referral sent to [facility]. DYLON contacted Barry and faxed referral. Barry advised that Amanda from the [place] office will review referral and follow up. DYLON will continue to follow.
[2020-05-25 17:58] VITALS: BP 91/49; PULSE 92; TEMP 97.7
--- NOTE | 2020-05-25 20:00 | NUR ---
REFUSED NUTRITIONAL SUPPLEMENT.
--- NOTE | 2020-05-25 21:00 | NUR ---
PT RESTING IN BED. SPEECH IS STILL WEAK. POINTS FINGER INSTEAD OF USING LANGUAGE. ENC SPPECH. DENIES PAIN AT THIS TIME. MOD I IN ROOM. ENC SAFETY WITH WALKER. CALL LIGHT IN REACH.
--- NOTE | 2020-05-26 00:30 | NUR ---
PT COUGHING THICK CLEAR SPUTUM INTO TISSUES CAUSING GAG REFLEX. HOT TEA PROVIDED.
[2020-05-26 05:32] VITALS: BP 114/51; PULSE 95; TEMP 98.5
[2020-05-26 07:22] LABS: BASO % 0.2 % (0.0-2.0); EOS % 0.1 % (0-4.0); GRAN # 7.4 (1.4-6.5); GRAN % 65.5 % (42.2-75.2); LYMPH # 2.7 (1.2-3.4); LYMPH % 24.4 % (20.0-51.0); MEAN CELL VOLUME 102 fl (80.0-100.0); MEAN CORPUSCULAR HGB CONC 32 g/dl (33.0-37.0); MEAN PLATELET VOLUME 10.9 fl (7.4-10.4); MONO % 8.9 % (1.7-9.3); PLATELET COUNT 137 K/mm3 (130-400); RED BLOOD COUNT 2.53 M/mm3 (4.10-5.30); REDCELL DISTRIBUTION WIDTH-CV 17.9 % (11.5-14.5)
[2020-05-26 07:24] LABS: HEMATOCRIT 25.7 % (37.0-47.0); HEMOGLOBIN 8.3 g/dl (12.5-16.0); MEAN CORPUSCULAR HEMOGLOBIN 33 pg (27.0-31.0)
[2020-05-26 07:44] LABS: CALCIUM 9.4 mg/dL (8.4-10.2); CREATININE, serum 0.68 (0.52-1.25); MAGNESIUM 1.8 mg/dL (1.6-2.3); POTASSIUM 3.4 mmol/L (3.4-5.0)
--- NOTE | 2020-05-26 08:58 | NUR ---
Kerry from [facility] reports they can accept the patient for HHS.
--- NOTE | 2020-05-26 09:35 | NUR ---
PATIENT RESTING IN BED AT BEDSIDE SHIFT REPORT, ZINC CREAM APPLIED TO BOTH PRESSURE SORES TO BOTTOM AND NEW ALLEVYN DRESSING PLACED TO BOTTOM. PATIENT C/O PAIN ON BOTTOM. PATIENT STATES SHE HAD BM THIS AM. HEELS FLOATING AND ENCOURAGED PATIENT TO REPOSITION OFTEN TO CENTRAL SUPPLY AIDE HEALING. ALSO ENCOURAGED INCREASED PROTEIN INTAKE AND FLUID INTAKE.
[2020-05-26] MEDS ORDERED: PROAIR HFA0.09 MG/AC IH (11:07)
[2020-05-26] MEDS ORDERED: PACERONE100 MG PO (11:08)
[2020-05-26] MEDS ORDERED: ELIQUIS 2.5 PO (11:08)
[2020-05-26] MEDS ORDERED: CARAFATE 1GM1 G PO (11:27)
[2020-05-26] MEDS ORDERED: EFFER-K20 MEQ PO ×2 (11:27)
[2020-05-26] MEDS ORDERED: MUCUS RELIEF200 MG PO (11:27)
[2020-05-26] MEDS ORDERED: ZINC OXIDE56.7 GM TOP (11:28)
[2020-05-26] MEDS ORDERED: KLOR-CON20 MEQ PO (12:33)
--- NOTE | 2020-05-26 13:17 | NUR ---
Route Vending Machine Servicer faxed discharge orders to [facility] at [facility].
--- NOTE | 2020-05-26 13:44 | NUR ---
The patient is to discharge home today, 05/26 with [facility]. PT/OT and nursing services ordered. SW presented the IM form to the patient's daughter/DPOA-HC Heather. She understood and signed the form. A copy was provided to the patient and the original was placed in the chart. There are no additional needs at this time.
--- NOTE | 2020-05-26 15:24 | NUR ---
Patient health summary, discharge summary, and home meds printed and reviewed with patient and daughter Swathi. Stressed the importance of the follow up appointments and labs to be done prior to appointments. Reveiewed medications, and called prescriptions for Eliquis, Amiodarone, Sucralfate, and Potassium Chloride to the [facility] in [place]. A pill amusement park entertainer and pill organizer were also set aside. Belongings gathered by Carmel and daughter. Patient transported via wc by nurse and seatbelted for the ride home. Patient and daughter denied questions and a number was provided to them if one arises.
== END 2020-05-26 14:30 | disposition home health service (06) | DRG 947 ==
PROVIDERS: ADMIT Internal Medicine
DX: R53.81 Other malaise (principal); J18.9 Pneumonia, unspecified organism; J96.02 Acute respiratory failure with hypercapnia; J96.01 Acute respiratory failure with hypoxia; I21.A1 Myocardial infarction type 2; I50.32 Chronic diastolic (congestive) heart failure; I31.3 Pericardial effusion (noninflammatory); I70.269 Atherosclerosis of native arteries of extremities with gangrene, unspecified extremity; I27.20 Pulmonary hypertension, unspecified; Z66 Do not resuscitate; I48.91 Unspecified atrial fibrillation; I99.8 Other disorder of circulatory system; D64.9 Anemia, unspecified; F32.9 Major depressive disorder, single episode, unspecified; D75.82 Heparin induced thrombocytopenia (HIT); E78.5 Hyperlipidemia, unspecified; I11.0 Hypertensive heart disease with heart failure; M81.0 Age-related osteoporosis without current pathological fracture; R00.1 Bradycardia, unspecified; E83.42 Hypomagnesemia; R13.10 Dysphagia, unspecified; E83.39 Other disorders of phosphorus metabolism; Z79.82 Long term (current) use of aspirin; Z79.83 Long term (current) use of bisphosphonates; Z79.52 Long term (current) use of systemic steroids; Z88.5 Allergy status to narcotic agent
CPT/HCPCS: 99222-AI; 99232-AI; 99239; J7512